=== PATIENT | male | born 1940 | race Caucasian/White ===

== ENCOUNTER → 2020-01-14 | Outpatient (CLI) | payer MEDICARE ==
[2015-08-08 22:26] VITALS: BP 156/84
--- NOTE | 2020-01-14 16:57 | RAD ---
CT LUMBAR SPINE WO CONTRAST History:Reason: LOW BACK PAIN, RIGHT SIDE RADICULOPATHY, SEVERAL SURGERIES ON RICCO / Spl. Instructions: / History: Technique: Noncontrast CT was performed of the lumbar spine. Multiplanar reconstructions were performed. Exposure: One or more of the following individualized dose reduction techniques were utilized for this examination: 1. Automated exposure control 2. Adjustment of the mA and/or kV according to patient size 3. Use of iterative reconstruction technique. Comparison: Radiographs July 09, 2014 Findings: Posterior stabilization L4-L5 with interbody fusion. Grade 1 anterolisthesis L4 on L5, unchanged. Minimal retrolisthesis L3 on L4 and L2 on L3 and L1 on L2, unchanged. Normal vertebral body height. No fracture. T12-L1: No canal or neuroforaminal narrowing. L1-L2: Retrolisthesis. No canal or neuroforaminal narrowing. Mild facet arthropathy. L2-L3: Retrolisthesis. No canal narrowing. Mild bilateral neuroforaminal narrowing. Mild facet arthropathy. L3-L4: Retrolisthesis. Moderate facet arthropathy. No canal narrowing. Mild bilateral neural foraminal narrowing. L4-L5: Anterolisthesis. Degraded evaluation of the canal due to beam hardening artifact from adjacent hardware. No definite canal narrowing. Moderate right and mild left neuroforaminal narrowing. L5-S1: Vacuum disc phenomenon. Disc bulge. Advanced facet arthropathy. No canal narrowing. Moderate to severe bilateral neuroforaminal narrowing. Impression: 1. Posterior stabilization and interbody fusion L4-L5 with residual anterolisthesis L4 on L5. 2. Multilevel lumbar spondylosis most prominent L3-L4 and L5-S1. 3. Multilevel neuroforaminal narrowing most prominent L5-S1. Electronically signed by: Alexis De Souza DO (01/14/2020 4:54 PM) [facility]
== END | disposition home or self-care (01) ==
LOC: CT 09:01
PROVIDERS: ATTEND Family Medicine
DX: M47.817 Spondylosis without myelopathy or radiculopathy, lumbosacral region (principal); M48.07 Spinal stenosis, lumbosacral region; M43.16 Spondylolisthesis, lumbar region; M43.26 Fusion of spine, lumbar region
CPT/HCPCS: 72131

== ENCOUNTER → 2021-09-16 | Outpatient (CLI) | payer MEDICARE ==
[2015-08-08 22:26] VITALS: BP 156/84
--- NOTE | 2021-09-16 14:28 | RAD ---
EXAMINATION: XR KNEE 1-2 VIEWS, XR KNEE_AP BILAT STANDING CLINICAL HISTORY: Right knee pain. TECHNIQUE: XR KNEE 1-2 VIEWS, XR KNEE_AP BILAT STANDING Number of Images/Views: 3 COMPARISON: None FINDINGS: Moderate medial compartment narrowing. Mild to moderate patellofemoral compartment narrowing. Tricomp artmental small marginal osteophytes. No acute fracture. Focal calcification along the quadriceps ins ertion. No significant joint effusion. Medial prominent degenerative changes in the left knee, incompletely evaluated. IMPRESSION: Degenerative changes right knee as described, greatest in the medial compartment. Electronically signed by: Mayur Millan DO (09/16/2021 2:26 PM) [id number]
== END ==
LOC: RAD 09:30
PROVIDERS: ATTEND Orthopaedic Surgery Sports Medicine
DX: M17.0 Bilateral primary osteoarthritis of knee (principal); M25.762 Osteophyte, left knee; M25.761 Osteophyte, right knee; M25.862 Other specified joint disorders, left knee; M25.861 Other specified joint disorders, right knee
CPT/HCPCS: 73565; 73560-50